=== PATIENT | male | born 1950 | race African-American/Black ===

== ENCOUNTER 2021-05-17 07:05 | Outpatient (REF) | payer BC, SELFPAY ==
--- NOTE | ~2021-05-17 | XR_ITS ---
EXAMINATION: KNEE X-RAY CLINICAL INFORMATION: Pain COMPARISON: None TECHNIQUE: Standing AP view of both knees and lateral sunrise view of the left knee FINDINGS: Left knee: Bone alignment is normal. No fracture or dislocation is seen. There is medial femoral tibial joint space narrowing. There is a small osteophyte at the patellofemoral joint. There is slight lateral subluxation of the patella on the sunrise view. There is large osteophyte at the quadriceps tendon insertion to the patella. There is a large joint effusion. Standing AP view of the right knee demonstrates medial femoral tibial joint space narrowing. XR/XR knee standing BI IMPRESSION: Left knee: Arthritis and large joint effusion.
--- NOTE | ~2021-05-17 | XR_ITS ---
EXAMINATION: KNEE X-RAY CLINICAL INFORMATION: Pain COMPARISON: None TECHNIQUE: Standing AP view of both knees and lateral sunrise view of the left knee FINDINGS: Left knee: Bone alignment is normal. No fracture or dislocation is seen. There is medial femoral tibial joint space narrowing. There is a small osteophyte at the patellofemoral joint. There is slight lateral subluxation of the patella on the sunrise view. There is large osteophyte at the quadriceps tendon insertion to the patella. There is a large joint effusion. Standing AP view of the right knee demonstrates medial femoral tibial joint space narrowing. XR/XR knee LT 2V IMPRESSION: Left knee: Arthritis and large joint effusion.
== END 2021-05-17 07:06 | disposition home or self-care (01) ==
LOC: HO.HOSX 07:05
PROVIDERS: Visit Provider Physician Assistant
DX: M17.12 Unilateral primary osteoarthritis, left knee (principal)
CPT/HCPCS: 20610; 73560; 73565; J1100

== ENCOUNTER 2024-04-22 10:16 | Outpatient (REF) | payer OTHER, SELFPAY | END 2024-04-22 10:17 | disposition home or self-care (01) | LOC: HO.HOSX 10:16 | PROVIDERS: Visit Provider Orthopaedic Surgery | DX: M25.561 Pain in right knee (principal); M17.0 Bilateral primary osteoarthritis of knee | CPT/HCPCS: 20610; 73560; 73562; J0665; J1100; J2003 ==

== ENCOUNTER 2024-04-22 11:33 | Outpatient (AMB) | payer OTHER, SELFPAY ==
--- NOTE | 2024-04-22 11:43 | A.OFFVIS_ITS ---
Intake Visit Reasons: New Prob - Pain of right knee Intake Note: Cruzito is a 73 year old male who presents today for a new problem visit with complaints of right knee pain. Patient reports that ohe has had ongoing knee pain intermittently for about 1 month now. The knee gets inflamed and stiff, he is frequently driving which seems to trigger this. When he is having increased swelling stairs become more challenging. He does utilize ice application, and OTC NSAID. Allergies citric acid [CITRIC ACID] Allergy (Severe, Unverified 04/05/20 18:14) ANGIOEDEMA wheat [WHEAT] Allergy (Severe, Unverified 04/05/20 18:14) ANGIOEDEMA blood pressure med Allergy (Unknown, Uncoded 11/13/11 00:00) HPI HPI New Prob - Pain of right knee: Details: Cruzito is a 73 year old male who presents today for a new problem visit with complaints of right knee pain. Patient reports that ohe has had ongoing knee pain intermittently for about 1 month now. The knee gets inflamed and stiff, he is frequently driving which seems to trigger this. When he is having increased swelling stairs become more challenging. He does utilize ice application, and OTC NSAID. [facility] Medical History High blood cholesterol High blood pressure Social History Current occupational status: employed Current occupation: rt handed /insurance sales Physical Exam Extrem Other: Medial compartment TTP bilaterally, Retropatellar ttp right knee with mild effusion. Office Procedures Joint Injection/Aspiration Joint Injection/Aspiration Details: Injected 1 mL of Decadron and 3 mL 1% lidocaine and 3 mL of 0.25% Marcaine. Site was prepped using aseptic technique. Patient tolerated the procedure well. Primary Site: right knee Approach Used: anterolateral Coding 19606 - Large joint Procedure code (CPT) selection complete Results Reviewed Results Reviewed: I personally reviewed relevant radiographs. Bilateral medial comaprtment knee OA, moderate on right ,mild on left Moderate PF OA Right Assessment & Plan Assessment & Plan (1) Arthritis of right knee: Code(s): M17.11 - Unilateral primary osteoarthritis, right knee Category: Medical Plan: He has right knee OA affecting PF compartment most severely. I injected his right knee (2) Osteoarthritis of left knee: Code(s): M17.12 - Unilateral primary osteoarthritis, left knee Category: Medical Plan: Left knee OA that is stable. No orthopaedic intervention waranted at this time. Orders: Orders XR knee RT 3V 04/22/24 M25.561 - Pain in right knee Coding Level of Care Code Est Pt Level 3 (16275) Complex EM visit Add On G2211 Diagnoses Arthritis of right knee M17.11 Osteoarthritis of left knee M17.12 CPT Codes Coding - 82824 Large joint: 38850 - Large joint ([id number])
== END 2024-04-22 12:25 | disposition home or self-care (01) ==
PROVIDERS: PCP Family Medicine; Visit Provider Orthopaedic Surgery
DX: M17.0 Bilateral primary osteoarthritis of knee (principal)
CPT/HCPCS: 20610; 99213

== ENCOUNTER 2025-07-03 10:13 | Outpatient (AMB) | payer OTHER, SELFPAY ==
--- NOTE | 2025-07-03 10:14 | MHC.OFFVIS ---
Vital Signs 07/03/25 10:15 Height 6 ft 1 in Weight 232 lb BMI 30.6 Intake Visit Reasons: New Prob - Left Trigger Finger Intake Note: Cruzito is a 74 year old right hand dominant male who presents today for a New Problem Visit with complaints of Left Ring Finger locking, catching, swelling and pain. Patient reports that he has had trigger finger of the Left Ring Finger for many years now but over the last few months the finger has become quite swollen.No previous treatment for the trigger finger. He did have a flare of gout in the hand a few months back but this was treated and he does not think that this is related. Allergies enalapril Allergy (Verified 07/03/25 10:18) Angioedema verapamil Allergy (Verified 07/03/25 10:18) Angioedema HPI HPI New Prob - Left Trigger Finger: Details: Cruzito is a 74 year old right hand dominant male who presents today for a New Problem Visit with complaints of Left Ring Finger locking, catching, swelling and pain. Patient reports that he has had trigger finger of the Left Ring Finger for many years now but over the last few months the finger has become quite swollen.No previous treatment for the trigger finger. He did have a flare of gout in the hand a few months back but this was treated and he does not think that this is related. HPI Comments Details: Interval History The patient is a 74-year-old male presenting with follow-up for left ring trigger finger and associated hand swelling. The patient reports that the swelling in his left hand has been present for a couple of weeks and has not improved. He notes that the swelling initially resolved after a previous gout flare about a month and a half ago, but has since returned. The patient has been icing the hand frequently, which provides some relief, but the swelling persists. The patient was recently diagnosed with atrial fibrillation and started on blood thinners five days ago. He reports no allergies to medications, but experiences angioedema with certain blood pressure medications. Results [facility] Medical History High blood cholesterol High blood pressure Social History (Reviewed 05/17/21 @ 09:37 by Simona Nela, [facility]) Current occupational status: employed Current occupation: rt handed /insurance sales Physical Exam Exam Exam: Physical Exam - Extremities: Swelling noted in the left hand, particularly around the ring finger. The area is warm to touch but not erythematous. Vital Signs: BMI result Body Mass Index 30.6 Assessment & Plan Assessment & Plan (1) Swelling of left hand: Code(s): M79.89 - Other specified soft tissue disorders Category: Medical Plan Plan 1. Left Ring Trigger Finger With Associated Swelling And Pain The plan is to manage the swelling with a compression glove and initiate occupational therapy to help reduce the swelling and improve function. Consideration of antibiotics for possible low-grade cellulitis due to the warmth and tenderness of the area. 2. Swelling Of The Left Hand, Possibly Related To Previous Gout Flare Continue monitoring the swelling and manage with icing and compression. Evaluate the need for further gout management if symptoms persist or worsen. 3. Atrial Fibrillation Continue current anticoagulation therapy as prescribed by the recreation facility attendant. Monitor for any signs of bleeding or complications related to anticoagulation. Discussion Notes The patient and clinician discussed the current swelling in the left hand, considering the possibility of a low-grade infection versus residual effects from a previous gout flare. The patient expressed willingness to try antibiotics if deemed necessary and agreed to the plan of using a compression glove and attending occupational therapy. The patient was informed about the importance of monitoring for signs of infection or worsening symptoms and to report any significant changes. Orders: Orders OT Evaluation and Treatment Today M79.89 - Other specified soft tissue disorders Medications: New cephalexin 500 mg PO QID 28 caps 0RF 7 days Coding Level of Care Code Est Pt Level 4 (35250) Diagnoses Swelling of left hand M79.89
[2025-07-03 10:15] VITALS: BMI 30.6
== END 2025-07-03 10:56 | disposition home or self-care (01) ==
PROVIDERS: PCP Family Medicine; Visit Provider Orthopaedic Surgery
DX: M79.89 Other specified soft tissue disorders (principal)
CPT/HCPCS: 99214

== ENCOUNTER 2025-07-18 13:42 | Outpatient (AMB) | payer OTHER, SELFPAY ==
--- OUTSIDE RECORDS SUMMARY | 2025-07-18 09:30 | XMS_ITS | Encounter Summary ---
Author Organization [facility] Address [address] [place] [address] Care Team Providers Care Engineer Second Assistant Name Role Phone Yaw Campbell MD Primary [...] (Lexiscan) nuclear stress test with myocardial perfusion MT MYOCARDIAL PERFUSION IMAGING TOMOGRAPHIC MULTI STUDIES AT REST OR STRESS MT MYOCARDIAL PERFUSION IMAGING TOMOGRAPHIC SINGLE STUDY AT REST OR STRESS MT CARDIOVASCULAR STRESS TEST GLOBAL MT CV TMST/BIKE MAX/SUBMAX CONTINUOUS ECG MON/PHARM STRESS SUPVSR ONLY MT CV STRESS TEST/BIKE CONT ECG MON/PHARM STRESS INTERP & REPORT ONLY MT TEST STRESS CARDIOVASCULAR TRACING ONLY Jolene Li MD [facility] [address] [place] [address] [facility] Referral ID Status Reason Start Date Expiration Date V isits Requested Visits Authorized [id number] Authorized 07/05/2025 08/19/2025 1 1 Encounter Details Date Type Department Care Team (Latest Contact Info) Description 07/18/2025 9:30 AM EST Ancillary Procedure [facility] - [address] [place] [address] Atrial fibrillation, unspecified type (CMS/HCC V24, CMS/HCC [...] documented in this encounter Plan of Treatment Pending Results Name Type Priority Associated Diagnoses Date /Time Regadenoson (Lexiscan) nuclear stress test with myocardial perfusion Cardiac Nuclear Medicine Routine Atrial fibrillation, unspecified type (CMS/HCC V24, CMS/HCC V28) Dilated cardiomyopathy (CMS/HCC V24, CMS/HCC V28) Systolic congestive heart failure, unspecified HF chronicity (CMS/HCC V24, CMS/HCC V28) 07/18/2025 12:10 PM EST documented as of this encounter Procedures Procedure Name Priority Date/Time Associated Diagnosis Comments NM LEXISCAN STRESS TEST W/ MYOCARDIAL PERFUSION Routine 07/18/2025 12:10 PM EST Atrial fibrillation, unspecified type (CMS/HCC V24, CMS/HCC V28) Dilated cardiomyopathy (CMS/HCC V24, CMS/HCC V28) Systolic congestive heart failure, unspecified HF chronicity (CMS/HCC V24, CMS/HCC V28) Procedure Note - Candi Edge NP / Andrea Lyles MD - 07/18/2025 12:10 PM ESTThis note is in progress. Stress ECG was non-diagnostic due to resting ST-T abnormalities. Vasodilator (regadenoson) stress test was performed . Patientreported no symptoms during the stress test. Hypotensive blood pressureresponse. Stress ejection fraction is 38%. Findings Stress Findings A pharmacological stress test was [...] for stress testing. The ECG shows atrial flutter. Non-specific ST abnormalities noted at baseline. There were no arrhythmias during stress. Arrhythmias during recovery: occasional premature ventricular contractions (PVCs). The result of the stress ECG was non-diagnostic for ischemia due to resting ST-T abnormalities. Nuclear Study Quality Study technique: MPI, SPECT, multi, rest and stress, 1 day. Overall image quality is excellent. CT attenuation correction was utilized. There are no artifacts present. There was no increased lung uptake of the radiopharmaceutical. No radiopharmaceutical dose was extravasated. The time from injection to rest imaging is 45 mins. The time from injection to stress imaging is 35 mins. Stress Function Comments Stress ejection fraction is 38%. Rest Function Comments Resting ejection fraction was 40%. documented in this encounter Visit Diagnoses Diagnosis [...] 1 documented in this encounter Care Teams Engineer Second Assistant Relationship Specialty Start Date End Date Yaw Campbell MD [address] [place] [phone] PCP - General Family Medicine 06/27/25 documented as of this encounter
[2025-07-18 13:48] VITALS: BMI 30.6
--- NOTE | 2025-07-18 13:48 | A.OFFVIS_ITS ---
Vital Signs 07/18/25 13:48 Height 6 ft 1 in Weight 232 lb BMI 30.6 Intake Visit Reasons: OV, L hand OA Intake Note: Cruzito is a 74 year old right hand dominant male who presents today for left hand osteoarthritis. He was last seen with Dr Landa with complaints of Left Ring Finger locking, catching, swelling and pain. Patient reports that he has had trigger finger of the Left Ring Finger for many years now but over the last few months the finger has become quite swollen. Patient was ordered O.T and advise to take ABX due to his gout flare up. Today patient states he discontinued his ABX due to being told by his PCP that this is not a gout flare up. He continues to have swelling and limited ROM. Allergies enalapril Allergy (Verified 07/18/25 13:59) Angioedema verapamil Allergy (Verified 07/18/25 13:59) Angioedema HPI HPI OV, L hand OA: Details: Cruzito is a 74 year old right hand dominant man who presents with complaints of left hand pain & swelling He complains of painful swelling & redness of multiple joints of his left hand & wrist, worse in his index & middle fingers. He says this has been present for ~3 weeks. He has pain with gripping activities, along with ROM of his finger & hand. he says he has pain that radiates up into his forearm at times. He finds some relief from ice & heat, but nothing termite exterminator helper. He had short term relief from his dose taper of Prednisone, and of Abx, but his symptoms quickly returned after a few days. He has a Hx of Gout in the past. He was seen by Dr. Landa who ordered OT & Cephalexin in case of a possible cellulitis. He says while on his Abx his swelling improved, but returned while he was still on hia Abx. [facility] Medical History High blood cholesterol High blood pressure Social History Current occupational status: employed Current occupation: rt handed /insurance sales Review of Systems Const All systems reviewed & are unremarkable except as noted in HPI and below Physical Exam Vital Signs: BMI result Body Mass Index 30.6 Const General: cooperative, healthy appearing and no acute distress Orientation/consciousness: patient oriented x3 HEENT Head: Yes normocephalic and Yes atraumatic Eyes EOM: EOMs intact bilaterally Resp Effort & Inspection: normal respiratory effort and able to speak in complete sentences Cardio Jugular venous distension: no JVD Skin General skin exam: turgor normal Rashes: no rashes Neuro General: patient oriented x3 Extrem Other: Evaluation of Left Upper Extremity: The patient is alert, oriented, and in no acute distress Neuro: Median, Ulnar, Radial nerves motor and sensory intact and sensation is normal to the tips of all digits Vascular: Cap refill brisk ROM: With encouragement he could [ ] Skin: No lacerations or abrasions. General: No Ecchymosis. No Erythema, warmth, or evidence of infection. Tender over the middle finger PIP joint Tender over the index finger MCP joint Tender over the wrist joint Swelling over the distal forearm, wrist, and hand Questionable pain with axial loading Radiographs: 3 views of the left hand were taken and viewed by me today in clinic. They show no fractures or dislocations. Psych Appearance: grossly normal Affect: normal affect Attitude: cooperative Office Procedures AMB Fracture Care Details: No fracture Left wrist joint diagnostic aspiration Mini C-arm for needle placement 53126 Left wrist steroid injection Mini C-arm for needle placement 88888 Fracture Billing Code: Fracture Billing Code Assessment & Plan Assessment & Plan (1) Swelling of left hand: Code(s): M79.89 - Other specified soft tissue disorders Category: Medical (2) Pain and swelling of left wrist: Code(s): M25.532 - Pain in left wrist; M25.432 - Effusion, left wrist Category: Medical (3) Numbness and tingling in left hand: Code(s): R20.0 - Anesthesia of skin; R20.2 - Paresthesia of skin Category: Medical Plan Assessment & Plan: 1. Left hand & wrist swelling & pain Distal forearm, wrist, hand Most tender over the wrist, 2nd MCP joint, and middle finger PIP joint Onset ~3-4 weeks ago, etiology unclear Possible Gout flare I educated him about this condition I discussed treatment options I recommend aspiration for evaluation by pathology He found limited relief from high-dose steroids & Keflex I discussed activity modification, he should work on ROM exercises at home Aspiration Injection#1: The risks and benefits of aspiration & injection, including but not limited to risk of damage to blood vessels, nerves, tendons, infection, failure to improve symptoms, increased pain, and possible need for further aspirations or surgical intervention. After obtaining written consent, I sterilely prepped the area over the Dorsal wrist joint. I then injected subcutaneously with a small amount 1% lidocaine. I then passed an 18 gauge needle into the dorsal wrist joint, at the scapholunate interval, using the mini C-arm for needle guidance, and aspirated ~0.4mL of clear watery fluid with a small amount of white precipitate in it. No gross purulence. Wrist steroid injection, injection 2: The joint was then injected with a combination of 1 mL of dexamethasone (4mg/ml) and 0.5% plain Marcaine, using the mini C-arm for needle guidance. The patient tolerated this well and with no complications. He had good early relief of his painful wrist symptoms following this injection. The fluid was sent to the lab for a Gram stain, cultures to assess for possible infection, as well as a crystals analysis to assess for possible Gout He is going to start his indomethacin 3 times a day as prescribed by his primary care provider He will follow up next week to see how he is doing. 2. Left hand numbness In the thumb & index fingers Symptoms intermittent & occasional If his symptoms increase in frequency or severity he can follow up for a NCS Please note that greater than 75 minutes was spent with this patient going over the history, evaluating the patient and radiographs, formulating possible treatment options, discussing them with the patient, and documenting the visit. Scribed for Devika Castillo MD by Bharat Lindsay, medical billing and coding instructor, on 07/18/25 at 2:00 PM, EST. Orders: Orders XR hand LT min 3V Today M79.642 - Pain in left hand FL guided needle placement Today M25.432 - Effusion, left wrist, M25.532 - Pain in left wrist, M79.89 - Other specified soft tissue disorders Routine Culture w Gram Stain Today M25.432 - Effusion, left wrist, M25.532 - Pain in left wrist, M79.89 - Other specified soft tissue disorders Coding Level of Care Code Est Pt Level 5 (20441) Diagnoses Swelling of left hand M79.89 Pain and swelling of left wrist M25.532; M25.432 Numbness and tingling in left hand R20.0; R20.2 CPT Codes Fracture Care - Fracture Billing Code: Fracture Billing Code ([id number])
--- OUTSIDE RECORDS SUMMARY | 2025-07-18 17:33 | XMS_ITS | Encounter Summary ---
Author Organization [facility] Address [address] [facility] [address] [place] [phone] Phone Care Team Providers Care Wildlife Removal Specialist Name Role Phone Radu Campbell MD Primary Care Prov ider Encounter Details Date Type Department Care Team (Late st Contact Info) Description 09/12/2019 Procedure Pass [facility] Endoscopy Admitting Dept Virtual Department [address] [place] [address] Social History Tobacco Use Types Packs/Day Years Used Date Smoking Tobacco: Never Smokeless Tobacco: Never Alcohol Use Standard Drinks/Week Comments Yes 10 (1 standard drink = 0.6 oz pu re alcohol) Sex and Gender Information Value Date Recorded Sex Assigned at Not on file Legal Sex Male 9:59 PM EDT Gender Identity Not on file Sexual Orientation Not on file documented as of this encounter Plan of Treatment Not on file documented as of this encounter Visit Diagnoses Not on filedocumented in this encounter Care Teams Wildlife Removal Specialist Relationship Specialty Start Date End Date Radu Campbell MD PCP - General 05/04/17 documented as of this encounter Additional Source Comments The information contained in this document represents components of the legal health record. It is not the complete legal health record.[facility]
--- OUTSIDE RECORDS SUMMARY | 2025-07-18 17:33 | XMS_ITS | Encounter Summary ---
Author Organization [facility] Address [address] [place] [phone] Phone Care Team Providers Care Lacquer Mixer Name Role Phone Radu Campbell MD Primary Care Prov ider Encounter Details Date Type Department Care Team ([facility] st Contact Info) Description 06/28/2025 Telephone [facility] [address] [place] [address] Eitan Vasquez MD [address] [address] [email or web address] Social History Tobacco Use Types Packs/Day Years Used Date Smoking Tobacco: Never Smokeless Tobacco: Never Alcohol Use Standard Drinks/Week Comments Yes 10 (1 standard drink = 0.6 oz pu re alcohol) Education Answer Date Recorded Are you interested in more education? Not on kiah e 11/14/2022 Are you concerned about learning? Not on file 11/14/2022 No 11/14/2022 No 11/14/2022 Digital Access Answer Date Recorded No 12/13/2022 No 12/13/2022 No 12/13/2022 Reliable internet access at home? Not on file 12/13/2022 Device with a working camera? Not on file Sex and Gender Information Value Date Recorded Sex Assigned at Not on file Legal Sex Male 9:59 PM EDT Gender Identity Not on file Sexual Orientation Not on file documented as of this encounter Progress Notes * Charmaine Winston - 06/28/2025 1:08 PM EST Pt calling to schedule 5 year colonoscopy, please reach out when available. Patient was due in 08/2024 documented in this encounter Plan of Treatment Not on file documented as of this encounter Visit Diagnoses Not on filedocumented in this encounter Care Teams Lacquer Mixer Relationship Specialty Start Date End Date Radu Campbell MD [email or web address] PCP - General 05/04/17 documented as of this encounter Additional Source Comments The information contained in this document represents components of the legal health record. It is not the complete legal health record.[facility]
--- OUTSIDE RECORDS SUMMARY | 2025-07-18 17:33 | XMS_ITS | Clinical Summary ---
Author Organization [facility] Address [address] [place] [address] Phone Care Team Providers Care Corrosion Control Engineer Name Role Phone Radu Campbell MD Primary Care Prov ider Allergies Active Allergy Reactions Criticality Noted Date Comments Enalapril Maleate Angioedema 05/30/2018 triggered angioedema Verapamil Other (See Comments) 05/30/2018 slowed heart rate to 30's Medications amLODIPine (NORVASC) 10 MG tablet Take 10 mg by mouth daily. Active doxazosin (CARDURA) 4 MG tablet Take 4 mg by mouth nightly at bedtime. Active pravastatin (PRAVACHOL) 20 MG tablet Take 20 mg by mouth daily. Active irbesartan (AVAPRO) 300 MG tablet Take 300 mg by mouth daily. Active hydrOXYzine HCl (ATARAX) 10 MG tablet Take 10 mg by mouth 3 (three) times a day as needed for itching. Active aspirin 81 MG EC tablet Take 81 mg by mouth daily. Active Encounters Date Type Department Care Team Description 06/28/[address] [facility] [address] [place] [address] Elyssa Mcknight MD 06/26/2025 Transcribe Orders [facility] [address], [address] [place] [address] Rdau Campbell MD Atrial fibrillation, unspecified type (Primary Dx) 06/26/2025 Transcribe Orders [facility] [address], [address] [place] [address] Radu Campbell MD Atrial fibrillation, unspecified type (Primary Dx) from Last 3 Months Social History Tobacco Use Types Packs/Day Years [...] on file Sexual Orientation Not on file Last Filed Vital Signs Vital Sign Reading Time Taken Comments Blood Pressure 121/91 09/12/2019 7:57 AM EST Pulse 63 09/12/2019 6:57 AM EST Temperature 37 C (98.6 F) 05/30/2018 2:32 PM EST Respiratory Rate 18 09/12/2019 7:57 AM EST Oxygen Saturation 92% 09/12/2019 7:57 AM EST Inhaled Oxygen Concentration - - Weight 108 kg (238 lb) 08/26/2019 9:00 AM EST Height 185.4 cm (6' 1 ) 09/12/2019 6:57 AM EST Body Mass Index 31.4 08/26/2019 9:00 AM EST Plan of Treatment Health Maintenance Due Date Last Done Comments LIPID PANEL 1950 DEPRESSION SCREENING 1964 HEPATITIS C SCREENING 1970 COLOGUARD 1997 FIT TEST 1997 FOBT 1997 SIGMOIDOSCOPY 1997 VIRTUAL COLONOSCOPY 1997 ZOSTER VACCINES (1 of 2) 2002 CREATININE LEVEL 05/30/2019 05/30/2018 POTASSIUM LEVEL 05/30/2019 05/30/2018 PNEUMOCOCCAL VACCINES (50+ years) (2 of 2 - PCV) 02/26/2021 02/27/2020 Adult Td,Tdap Booster 05/07/2022 05/07/2012 INFLUENZA VACCINE (#1) 2025 0, 04/27/2019, 05/07/2012, Additional history exists COVID-19 VACCINE ( - 2024- season) 2025 09/28/2020 RSV VACCINE (1 - 1-dose 75+ series) 2027 COLONOSCOPY 09/12/2029 09/12/2019 COLORECTAL CANCER SCREENING 09/12/2029 SMOKING STATUS SCREENING (Once After 26 Yrs) Completed 09/12/2019 HEPATITIS A VACCINES Aged Out No long er eligible based on patient's age to complete this topic HIB VACCINES Aged Out No longer eligi ble based on patient's age to complete this topic MENINGOCOCCAL VACCINES (ACWY) Aged Out No longer eligible based on patient's age to complete this topic MENINGOCOCCAL VACCINES (B) Aged Out N o longer eligible based on patient's age to complete this topic Medical Devices Not on file Procedures Procedure Name Priority Date/Time Associated Diagnosis Comments ENDOSCOPY, COLON 09/12/2019 7:21 AM EST BASIC METABOLIC PANEL (BMP) STAT 05/30/2018 12:40 PM EST from Last 3 Months or Most Recently Relevant to Health Maintenance Results * ENDOSCOPY, COLON (09/12/2019 7:21 AM EST) Narrative Transcriptions Elyssa Mcknight MD - 09/12/2019 7:21 AM EST Patient Name: Cruzito Kerri Sanchez MD:: ELYSSA MCKNIGHT MD Procedure Date: 09/12/2019 7:21 AM Date of : 1950 Age: 69 Admit Type: Outpatient Gender: Male Room: [facility] 05 Referring MD: Radu Zamarripa MD Exam Type: Colonoscopy Indications: Screening for colorectal malignant neoplasm, Last colonoscopy: 2007, Last colonoscopy 10 years ago Medications: Monitored Anesthesia Care Procedure: Informed consent was obtained from the patient after discussion of the indications, limitations,alternatives, benefits, and risks of the procedure. Risksspecifically discussed include but are not limited to medication reactions, missed lesions, bleeding, perforation, orthe need for emergent surgery. Throughout the procedure, the patient's blood pressure, pulse, end-tidal CO2, and oxygen saturations were monitored continuously. The Olympus adult variable colonoscope CF-LR406O #4 was introduced through the anus and advanced to the cecum, identified by the appendiceal orifice, ileocecal valveand palpation. The colonoscopy was performed without difficulty. The patient tolerated the procedure well.The quality of the bowel preparation was evaluated usingthe BBPS (Mayo Bowel Preparation Scale) with scores of: Right Colon = 3, Transverse Colon = 3 and Left Colon =3 (entire mucosa seen well with no residual staining,small fragments of stool or opaque liquid). The total BBPSscore equals 9. Complications: No immediate complications. Estimated blood loss:Minimal. Findings: The perianal and digital rectal examinations werenormal. Pertinent negatives include normal sphincter tone. Two sessile polyps were found in the cecum. The polyps were 4 to 8 mm in size. These polyps were removed witha cold snare. Resection and retrieval were complete. Estimated blood loss was minimal. A 5 mm polyp was found in the mid ascending colon. The polyp was sessile. The polyp was removed with a cold snare. Resection and retrieval were complete. Estimated blood loss was minimal. A 4 mm polyp was found at 60 cm proximal to the anus.The polyp was sessile. The polyp was removed with a cold snare. Resection and retrieval were complete. Estimated blood loss was minimal. A few small-mouthed diverticula were found in the transverse colon. Non-bleeding internal hemorrhoids were found during retroflexion. The hemorrhoids were small. Retroflexion in the right colon was performed. The exam was otherwise without abnormality on directand retroflexion views. Impression: - Two 4 to 8 mm polyps in the cecum, removed with acold snare. Resected and retrieved. - One 5 mm polyp in the mid ascending colon, removedwith a cold snare. Resected and retrieved. - One 4 mm polyp at 60 cm proximal to the anus, removed with a cold snare. Resected and retrieved. - Diverticulosis in the transverse colon. - Non-bleeding internal hemorrhoids. - The examination was otherwise normal on direct and retroflexion views. Recommendation: - I will send results of your biopsy to you and your referring physician or provider. If you do not receive notification within 3 weeks, please call our office. - Repeat colonoscopy in 3 years for surveillance of multiple polyps. ELYSSA MCKNIGHT MD 09/12/2019 7:49:51 AM This report has been signed electronically. Number of Addenda: 0 Note Initiated On: 09/12/2019 7:21 AM Procedure Code(s): --- Professional --- 06520, Colonoscopy, flexible; with removal of tumor(s), polyp(s), or other lesion(s) by snare technique --- Technical --- 86285, Colonoscopy, flexible; with removal of tumor(s), polyp(s), or other lesion(s) by snare technique Diagnosis Code(s): --- Professional --- Z12.11, Encounter for screening for malignant neoplasm of colon D12.0, Benign neoplasm of cecum D12.2, Benign neoplasm of ascending colon K64.8, Other hemorrhoids K57.30, Diverticulosis of large intestine without perforation orabscess without bleeding --- Technical --- Z12.11, Encounter for screening for malignant neoplasm of colon D12.0, Benign neoplasm of cecum D12.2, Benign neoplasm of ascending colon K64.8, Other hemorrhoids K57.30, Diverticulosis of large intestine without perforation orabscess without bleeding CPT copyright 2018 [employer]. All rights reserved. The codes documented in this report are preliminary and upon hammer heater reviewmay be revised to meet current compliance requirements. Procedure Date: 09/12/2019 7:21:14 AM [address] [place] [address] Radu Zamarripa MD GI PROCEDURE ORDER DUARTE Final Result * (ABNORMAL) Basic metabolic panel (05/30/2018 12:40 PM EST) SODIUM 141 133 - 146 mmol/L [facility] CHLORIDE 103 96 - 108 mmol/L [facility] POTASSIUM 4.3 3.3 - 5.1 mmol/L [facility] CO2 24 21 - 35 mmol/L [facility] BUN 17 6 - 19 mg/dL [facility] CREATININE 1.00 0.5 - 1.5 mg/dL [facility] GLUCOSE 118(H) 70 - 99 mg/dL [facility] CALCIUM 9.2 8.4 - 10.3 mg/dL [facility] EGFR 79 >59 mL/min/1.7 3m2 [facility] Comment:If patient is black, multiply result by 1.159. Estimated glomerular filtration rate calculated using the CKD-EPI equation. ANION GAP 18 10 - 20 mmol/L [facility] Blood 05/30/2018 12:4 0 PM EST 05/30/2018 12:54 PM EST Daniela Fuller MD LAB BLOOD BKR ORDERA BLES Final Result [facility] [address] [place] [address] from Last 3 Months or Most Recently Relevant to Health Maintenance Insurance [place] [facility] [place] [address] [place] [address] [place] Advance Directives For more information, please contact: [phone] (9AM - 5PM [facility], Thursday-Thursday) Documents on File Type Date Recorded Patient Cosmetics Supervisor Expl anation Healthcare Proxy 09/12/2019 healthcare proxy Care Teams Corrosion Control Engineer Relationship Specialty Start Date End Date Radu Campbell MD [email or web address] PCP - General 05/04/17 Additional Source Comments The information contained in this document represents components of the legal health record. It is not the complete legal health record.[facility]
--- OUTSIDE RECORDS SUMMARY | 2025-07-18 17:33 | XMS_ITS | Clinical Summary ---
Author Organization [facility] [employer] [facility] Address [address] [place] [address] Phone Care Team Providers Care Lead Assembler Name Role Phone Yaw Campbell MD Primary Care Provi raudel Allergies Active Allergy Reactions Criticality Noted Date Comments Enalapril Maleate Angioedema High 05/30/2018 triggered angioedema Verapamil Other 05/30/2018 slowed heart rate to 30's Medications allopurinoL (ZYLOPRIM) 100 mg tablet Take 1 tablet (100 mg total) by mouth 1 (one) time each day. for 30 days 05/16/2025 Active amLODIPine (NORVASC) 10 mg tablet Take 1 tablet (10 mg total) by mouth 1 (one) time each day. 12/12/2023 Active doxazosin (CARDURA) 4 mg tablet Take 1 tablet (4 mg total) by mouth 1 (one) time each day. 12/19/2023 Active hydrOXYzine HCL (ATARAX) 10 mg tablet Take 1 tablet (10 mg total) by mouth every 6 (six) hours if needed. Active irbesartan (AVAPRO) 300 mg tablet Take 1 tablet (300 mg total) by mouth 1 (one) time each day. Active pravastatin (PRAVACHOL) 40 mg tablet Take 1 tablet (40 mg total) by mouth 1 (one) time each day. Active Xarelto 20 mg tablet Take 1 tablet (20 mg total) by mouth 1 (one) time each day with dinner. 06/22/2025 Active Hospital, Clinic, or Other Facility Administered Medication Ordered Dose Route Frequency Start Date End Date Status regadenoson (LEXISCAN) injection 0.4 mgIndications:Atrial fibrillation, unspecified type (CMS/HCC V24, CMS/HCC V28),Dilated cardiomyopathy (CMS/HCC V24, CMS/HCC V28),Systolic congestive heart failure, unspecified HF chronicity (CMS/HCC V24, CMS/HCC V28) 0.4 mg IV Once in imaging 07/18/2025 Active TC-99M tetrofosmin P radio-isotope injection 10.1 millicurie 10.1 millicurie IV Once in imaging 07/18/2025 07/18/2025 Ende d regadenoson (LEXISCAN) injection 0.4 mg 0.4 mg IV Once in imaging 07/18/2025 07/18/2025 Ended TC-99M tetrofosmin P radio-isotope injection 29.9 millicurie 29.9 millicurie IV Once in imaging 07/18/2025 07/18/2025 Ende d Encounters Date Type Department Care Team Description 07/18/2025 9:30 AM EST Ancillary Procedure [facility] Cardiology [facility] [address] [place] [phone] Atrial fibrillation, unspecified type (CMS/HCC V24, CMS/HCC V28); Dilated cardiomyopathy (CMS/HCC V24, CMS/HCC V28); Systolic congestive heart failure, unspecified HF chronicity (CMS/HCC V24, CMS/HCC V28) 06/28/2025 11:10 AM EST Office Visit [facility] Cardiology [facility] [address] [place] [phone] Jolene Vitale MD Atrial fibrillation, unspecified type (CMS/HCC V24, CMS/HCC V28) (Primary Dx); Dilated cardiomyopathy (CMS/HCC V24, CMS/HCC V28); Systolic congestive heart failure, unspecified HF chronicity (CMS/HCC V24, CMS/HCC V28) 06/27/2025 Telephone [facility] [address] [place] [address] Yaw Campbell MD from Last 3 Months Family History Medical History Relation Name Comments COPD Father Relation Name Status Comments Father Social History Tobacco Use Types Packs/Day Years Used Date Smoking Tobacco: Never Passive Smoke Exposure: Past Smokeless Tobacco: Never Tobacco Cessation:Counseling Given: Not Answered Alcohol Use Standard Drinks/Week Comments Not Currently [...] Pressure 89/61 07/18/2025 9:54 AM EST Pulse 104 06/28/2025 11:18 AM EST Temperature - - Respiratory Rate - - Oxygen Saturation 17% 06/28/2025 11:18 AM EST Inhaled Oxygen Concentration - - Weight 105 kg (231 lb) 07/18/2025 9:32 AM EST Height 185.4 cm (6' 1 ) 07/18/2025 9:32 AM EST Body Mass Index 30.48 07/18/2025 9:32 AM EST Plan of Treatment Health Maintenance Due Date Last Done Comments Colorectal Cancer Screening: Colonoscopy 1950 RSV Immunization Adult Patients (1 - Risk 50-74 years 1-dose series) 2002 Zoster Vaccines (1 of 2) 2002 Depression Screening 07/20/2024 COVID-19 Vaccine ( season) 2025 05/22/2022, 06/28/2021, 10/19/2020, Additional history exists Cholesterol Screening (Lipid Panel) 06/27/2025 Falls Risk Assessment 06/27/2025 Hepatitis C Screening 06/27/2025 Social Influencers of Health Screening 06/27/2025 Hypertension/CHF/CAD Annual BMP Blood Test 06/28/2025 DTaP,Tdap,and Td Vaccines (3 - Td or Tdap) 02/26/2032 02/25/2022, 05/07/2012 Pneumococcal Vaccine: 50+ Years Completed 02/27/2020, 05/21/2018 Influenza Vaccine Completed 03/30/2025, , 04/27/2023, Additional history exists HIB Vaccines Aged Out No longer eligi ble based on patient's age to complete this topic HPV Vaccines Aged Out No longer eligi ble based on patient's age to complete this topic Hepatitis A Vaccines Aged Out No long er eligible based on patient's age to complete this topic Hepatitis B Vaccines Aged Out No long er eligible based on patient's age to complete this topic IPV Vaccines Aged Out No longer eligi ble based on patient's age to complete this topic MMR Vaccines Aged Out No longer eligi ble based on patient's age to complete this topic Meningococcal ACWY Vaccine Aged Out N o longer eligible based on patient's age to complete this topic Meningococcal B Vaccine Aged Out No l onger eligible based on patient's age to complete this topic RSV Immunization Patients Under 20 months Aged Out No longer eligible based on patient's age to complete this topic Varicella Vaccines Aged Out No longer eligible based on patient's age to complete this topic Procedures Procedure Name Priority Date/Time Associated Diagnosis [...] Function Comments Resting ejection fraction was 40%. ECG 12-LEAD Routine 06/28/2025 11:27 AM EST Atrial fibrillation, unspecified type (CMS/HCC V24, CMS/HCC V28) from Last 3 Months Results * ECG 12 lead (06/28/2025 11:27 AM EST) Ventricular Rate ECG 91 BPM GEMUSE Atrial Rate 202 BPM GEMUSE QRS Duration 98 ms GEMUSE Q-T Interval 392 ms GEMUSE QTc 482 ms GEMUSE R [place] 10 degrees GEMUSE T [place] -136 degrees GEMUSE ECG Interpretation Atrial fibrillation with premature ventricular or aberrantly conducted complexes Low voltage QRS Cannot rule out Anterior infarct , age undetermined No previous ECGs available Confirmed by RUBEN VITALE ([id number]) on 07/16/2025 11:22:57 PM GEMUSE 06/28/2025 11:2 7 AM EST 07/16/2025 11:22 PM EST us Jolene Vitale MD ECG ORDERABLES Final Resu lt GEMUSE from Last 3 Months Insurance MEDICARE [facility] [place] [id number] Care Teams Lead Assembler Relationship Specialty Start Date End Date Yaw Campbell MD [address] [place] [address] PCP - General Family Medicine 06/27/25
== END 2025-07-18 15:29 | disposition home or self-care (01) ==
LOC: HO.HOS 13:43
PROVIDERS: PCP Family Medicine; Visit Provider Orthopaedic Surgery
DX: M79.89 Other specified soft tissue disorders (principal); M25.532 Pain in left wrist; M25.432 Effusion, left wrist; R20.0 Anesthesia of skin; R20.2 Paresthesia of skin
CPT/HCPCS: 20605; 77002; 99215; 99417

== ENCOUNTER 2025-07-18 13:42 | Outpatient (REF) | payer OTHER, SELFPAY ==
--- NOTE | ~2025-07-18 | FL_ITS ---
EXAMINATION: FL GUIDANCE ONLY FOR NEEDLE PLACEMENT HISTORY: M25.532 - Pain in left wrist COMPARISON: Left wrist x-ray from the same day Technique: Intraoperative fluoroscopic guidance provided for orthopedic procedure. FINDINGS: Single submitted fluoroscopic image demonstrates needle projecting over the proximal carpal row/scapholunate joint. See procedure note for detailed findings. Fluoroscopy time 23 seconds. Dose 9734 ugy/sq cm FL/FL guided needle placement IMPRESSION: Fluoroscopy guidance for orthopedic procedure. Electronically signed by: Iris Bernstein MD 07/19/2025 09:50 AM GILDA
== END 2025-07-18 13:43 | disposition home or self-care (01) ==
LOC: HO.HOSX 13:42
PROVIDERS: PCP Family Medicine; Visit Provider Orthopaedic Surgery
DX: M79.642 Pain in left hand (principal); M25.532 Pain in left wrist; M25.432 Effusion, left wrist; M79.89 Other specified soft tissue disorders; R20.0 Anesthesia of skin; R20.2 Paresthesia of skin
CPT/HCPCS: 20605; 77002; 87070; 87073; 87205; J0665; J1100; J2003

== ENCOUNTER → 2025-07-18 13:45 | Outpatient (BNV) | payer OTHER, SELFPAY | PROVIDERS: Visit Provider Radiology Diagnostic Radiology | DX: M24.232 Disorder of ligament, left wrist (principal) | CPT/HCPCS: 73130 ==

== ENCOUNTER 2025-07-19 09:05 | Outpatient (REF) | payer OTHER, SELFPAY ==
--- OUTSIDE RECORDS SUMMARY | 2025-07-18 09:30 | XMS_ITS | Encounter Summary ---
Author Organization [facility] Address [address] [place] [address] Care Team Providers Care Charge Loader Name Role Phone Yaw Campbell MD Primary Care Provi raudel Reason for Visit * Cardiac Stress Testing (Routine) - Authorized Specialty Diagnoses / Procedures Referred By Contac t Referred To Contact Cardiology Diagnoses Atrial fibrillation, unspecified type (CMS/HCC V24, CMS/HCC V28) Dilated cardiomyopathy (CMS/HCC V24, CMS/HCC V28) Systolic congestive heart failure, unspecified HF chronicity (CMS/HCC V24, CMS/HCC V28) Procedures Regadenoson (Lexiscan) nuclear stress test with myocardial perfusion DC MYOCARDIAL PERFUSION IMAGING TOMOGRAPHIC MULTI STUDIES AT REST OR STRESS DC MYOCARDIAL PERFUSION IMAGING TOMOGRAPHIC SINGLE STUDY AT REST OR STRESS DC CARDIOVASCULAR STRESS TEST GLOBAL DC CV TMST/BIKE MAX/SUBMAX CONTINUOUS ECG MON/PHARM STRESS SUPVSR ONLY DC CV STRESS TEST/BIKE CONT ECG MON/PHARM STRESS INTERP & REPORT ONLY DC TEST STRESS CARDIOVASCULAR TRACING ONLY Jolene Li MD [facility] [address] [place] [address] [facility] Referral ID Status Reason Start Date Expiration Date V isits Requested Visits Authorized [id number] Authorized 07/05/2025 08/19/2025 1 1 Encounter Details Date Type Department Care Team (Latest Contact Info) Description 07/18/2025 9:30 AM EST Ancillary Procedure [facility] - [address] [place] [phone] Atrial fibrillation, unspecified type (CMS/HCC V24, CMS/HCC V28); Dilated cardiomyopathy (CMS/HCC V24, CMS/HCC V28); Systolic congestive heart failure, unspecified HF chronicity (CMS/HCC V24, CMS/HCC V28) Social History Tobacco Use Types Packs/Day Years Used Date Smoking Tobacco: Never Passive Smoke Exposure: Past Smokeless Tobacco: Never Alcohol Use Standard Drinks/Week Comments Not Currently 6 (1 standard drink = 0.6 oz pur e alcohol) Sex and Gender Information Value Date Recorded Sex Assigned at Not on file Legal Sex Male 8:06 AM EST Gender Identity Not on file Sexual Orientation Not on file documented as of this encounter Last Filed Vital Signs Vital Sign Reading Time Taken Comments Blood Pressure 89/61 07/18/2025 9:54 AM EST Pulse - - Temperature - - Respiratory Rate - - Oxygen Saturation - - Inhaled Oxygen Concentration - - Weight 105 kg (231 lb) 07/18/2025 9:32 AM EST Height 185.4 cm (6' 1 ) 07/18/2025 9:32 AM EST Body Mass Index 30.48 07/18/2025 9:32 AM EST documented in this encounter Plan of Treatment Upcoming Encounters Date Type Department Care Team (Late st Contact Info) Description 08/30/2025 1:40 PM EST Office Visit [facility] [address] [facility] [address] [place] [phone] Veronica Draper NP [address] [place] [address] [address] [place] [phone] documented as of this encounter Procedures Procedure Name Priority Date/Time Associated Diagnosis Comments NM LEXISCAN STRESS TEST W/ MYOCARDIAL PERFUSION Routine 07/18/2025 12:10 PM EST Atrial fibrillation, unspecified type (CMS/HCC V24, CMS/HCC V28) Dilated cardiomyopathy (CMS/HCC V24, CMS/HCC V28) Systolic congestive heart failure, unspecified HF chronicity (CMS/HCC V24, CMS/HCC V28) documented in this encounter Results * NM LEXISCAN STRESS TEST W/ MYOCARDIAL PERFUSION (07/18/2025 12:10 PM EST) Exercise/injec tion duration (min) 0 CV PACS STRESS Exercise/injec tion duration (sec) 54 CV PACS STRESS Peak SBP 90 mmHg CV PACS STRESS Peak DBP 60 mmHg CV PACS STRESS Peak HR 131 bpm CV PACS STRESS Baseline HR 88 bpm CV PACS STRESS Baseline SBP 100 mmHg CV PACS STRESS Baseline DBP 70 mmHg CV PACS STRESS Estimated workload 1.0 METS CV PACS STRESS Percent HR 89 % CV PACS STRESS Rate Pressure Product 11,790.0 mmHg*bpm CV PACS STRESS Target HR 126 bpm CV PACS STRESS Max HR Percent 88 % CV PA CS STRESS TID 1.17 CV PACS STRESS Nuc Stress EF 38 % CV PAC S STRESS Nuc Rest EF 40 % CV PACS STRESS BSA 2.32 m2 CV PACS STRESS Anatomical Region Laterality Modality Nuclear Medicine 07/18/2025 10:4 8 AM EST 07/18/2025 11:16 AM EST Impressions 07/19/2025 2:44 PM EST 1. Abnormal pharmacological nuclear stress test. 2. Symptoms: No chest pain during the regadenoson infusion 3. Stress ECG: No ischemic ECG changes with the regadenoson infusion, in the setting of an abnormal baseline 4. Myocardial perfusion imaging: - Attenuation corrected myocardial perfusion imaging revealed evidence of a small in size and mild in intensity fixed perfusion defect in the apical inferior wall and apex, suggestive of an infarct. - No evidence of any reversible perfusion defects on the attenuation corrected myocardial perfusion images to suggest the presence of ischemia. 5. TID was normal at 1.17. 6. Gated SPECT imaging was performed which demonstrated Global hypokinesis. The left ventricular systolic function is mildly reduced at rest with a left ventricular ejection fraction of 40%. Narrative 07/19/2025 2:44 PM EST Stress Findings A pharmacological stress test was performed using regadenoson, 0.4 mg IV over 10-15 seconds, followed by radiopharmacological injection 10 seconds post infusion. Total stress time was 0 min and 54 sec. The patient reached the end of the protocol. The patient's hemodynamic response was adequate for diagnosis. Blood pressure demonstrated a hypotensive response. Heart rate demonstrated a normal response. The patient reported no symptoms during the stress test. ECG 74-year-old with a history of atrial fibrillation who presents today for stress testing. The ECG shows atrial fibrillation and a nonspecific ST segment/T wave abnormality. There were no arrhythmias during stress. No significant ischemic changes in the setting of an abnormal baseline. Arrhythmias during recovery: occasional premature ventricular contractions (PVCs). No ischemic ECG changes in the setting of an abnormal baseline. Nuclear Study Quality Study technique: MPI, SPECT, multi, rest and stress, 1 day. Overall image quality is excellent. CT attenuation correction was utilized. There are no artifacts present. There was no increased lung uptake of the radiopharmaceutical. No radiopharmaceutical dose was extravasated. The time from injection to rest imaging is 45 mins. The time from injection to stress imaging is 35 mins. Perfusion Defect Conclusion There is no evidence of transient ischemic dilation (TID). Stress Function Comments Left ventricular systolic function post-stress is abnormal. Global function is moderately reduced. Stress ejection fraction is 38%. Rest Function Comments Left ventricular function at rest was abnormal. Resting ejection fraction was 40%. Global function is mildly reduced. Stress Combined Conclusion SCAN FINDINGS: Nuclear imaging of the left ventricle reveals normal cavity size at rest with no change with stress imaging. Myocardial perfusion imaging of the left ventricle revealed a large in size and severe intensity mostly fixed perfusion defect involving the basal to apical inferior wall, basal to mid inferoseptal wall, apical lateral wall, apical anterior wall, and apex. The raw images demonstrated the presence of significant diaphragmatic and soft tissue attenuation. CT attenuation correction was applied to the study which partially corrects the previously mentioned perfusion abnormality. As such, at least some portion of the previously mentioned perfusion defects are likely secondary to diaphragmatic/soft tissue attenuation artifact. However, even after attenuation correction was applied, there is evidence of a small in size and mild in intensity fixed perfusion defect in the apical inferior wall and apex. No reversible perfusion defects are noted on the attenuation corrected myocardial perfusion images. Gated SPECT imaging was performed which demonstrated Global hypokinesis. The left ventricular systolic function is mildly reduced at rest with a left ventricular ejection fraction of 40%. Perfusion Scoring Resting Summed Score: 2 Percent Normal: 2.94% Mild count reduction in the following segments: apical inferior and apex. All other segments are normal. AC resting images Perfusion Scoring Stress Summed Score: 2 Percent Normal: 2.94% Mild count reduction in the following segments: apical inferior and apex. All other segments are normal. AC stress images Perfusion Scores: SRS Score: 2 Percentage Abnormal: 2.94% Perfusion Scores: SSS Score: 2 Percentage Abnormal: 2.94% Perfusion Scores: SDS Score: 0 Percentage Abnormal: 0.00% Jolene Li MD CV STRESS PROCEDURES Final Result documented in this encounter Visit Diagnoses Diagnosis Atrial fibrillation, unspecified type (CMS/HCC V24, CMS/HCC V28) Dilated cardiomyopathy (CMS/HCC V24, CMS/HCC V28) Other primary cardiomyopathies Systolic congestive heart failure, unspecified HF chronicity (CMS/HCC V24, CMS/HCC V28) documented in this encounter Administered Medications Inactive Administered Medications - up to 3 most recent administrations Medication Order MAR Action Action Date Dose Rate Site regadenoson (LEXISCAN) injection 0.4 mg 0.4 mg, intravenous, Once in imaging, Starting on Thu07/18/25 at 1054, For 1 dose Given 07/18/2025 11:15 AM EST 0.4 mg Right Antecubital TC-99M tetrofosmin P radio-isotope injection 10.1 millicurie 10.1 millicurie, intravenous, Once in imaging, Starting on Thu07/18/25 at 0928, For 1 dose Given 07/18/2025 9:47 AM EST 10.1 millicuries Right Antecubital TC-99M tetrofosmin P radio-isotope injection 29.9 millicurie 29.9 millicurie, intravenous, Once in imaging, Starting on Thu07/18/25 at 1054, For 1 dose Given 07/18/2025 11:16 AM EST 29.9 millicuries Right Antecubital documented in this encounter Orders Medications Ordered That George ht Not Have Been Administered Count Last Ordered Date First Ordered Date regadenoson (LEXISCAN) injection 0.4 mg 1 1 documented in this encounter Care Teams Charge Loader Relationship Specialty Start Date End Date Yaw Campbell MD [address] [place] [phone] PCP - General Family Medicine 06/27/25 documented as of this encounter
--- NOTE | ~2025-07-19 | XR_ITS ---
EXAMINATION: XR HAND 3 OR MORE VIEWS LEFT HISTORY: M79.642 - Pain in left hand COMPARISON: There are no prior studies available for comparison. FINDINGS: Three views of the left hand are submitted. Osseous mineralization is normal. There is no fracture or dislocation. There is widening of the scapholunate space, suggestive of chronic ligamentous injury. There is no significant joint space narrowing. The soft tissues are unremarkable. XR/XR hand LT min 3V IMPRESSION: Widening of the scapholunate space, suggestive of chronically edematous injury. Electronically signed by: Victor Manuel Wilburn MD 07/18/2025 02:05 PM GILDA
--- OUTSIDE RECORDS SUMMARY | 2025-07-19 23:59 | XMS_ITS | Continuity of Care Document ---
Author Organization [facility] Address [address] [address]- Care Team Providers Care Scene And Lighting Design Lecturer Name Role Phone Stefano Salazar MD, Radu Primary Care Phys [facility] [place] [facility] [place]): 06/19/25 - 07/19/25 [id number] [address]- Attending Physician: Monet Lopez Admitting Physician: Monet Lopez Referring Physician: Monet Lopez Encounter Type: Triage Allergies, Adverse Reactions, Alerts Substance Criticality Severity Reaction Reaction Severity Status enalapril Active Immunizations Given and Recorded Vaccine Date Status Refusal Reason SARS-CoV-2 (COVID-19) mRNA BNT-162b2 vac 10/19/20 Given SARS-CoV-2 (COVID-19) mRNA BNT-162b2 vac 09/28/20 Given Medications amLODIPine 5 mg oral tablet 5 mg, 1, tablet, By Mouth, Daily, (do not take this if systolic blood pressure is below 100 ), # 30tablet, Refills 0, Tot. Refills 0, Maintenance, 05/08/17 2:21:41 PM EDT, Route to Pharmacy Electronically, [facility] Start Date: 05/08/17 Stop Date: 06/07/17 Status: Ordered Medication Dispense Status: Completed Quantity: 30.0 Unit: tablet Total Allowed Fills: 1 Fills Dispensed: 0 hydrochlorothiazide-valsartan 25 mg-320 mg oral tablet 1 tablet, By Mouth, Daily, # 30 tablet, 0 Refills, Maintenance, 05/08/17 1:23:48 PM EDT, Tablet Start Date: 05/08/17 Status: Ordered Medication Dispense Status: Completed Quantity: 30.0 Unit: tablet Total Allowed Fills: 1 Fills Dispensed: 0 hydrOXYzine hydrochloride 10 mg oral tablet 2 tablet = 20 mg, By Mouth, 4 times a day, PRN for anxiety, # 80 tablet, 0 Refills, Maintenance, 05/08/17 2:50:09 AM EDT, Tablet Start Date: 05/08/17 Status: Ordered Medication Dispense Status: Completed Quantity: 80.0 Unit: tablet Total Allowed Fills: 1 Fills Dispensed: 0 oxyCODONE 5 mg oral capsule 1 capsule = 5 mg, By Mouth, Every 6 hours, PRN as needed for pain, # 12 capsule, 0 Refills, Maintenance, 04/21/23 12:26:00 AM EDT, Capsule, [facility]/pharmacy #[id number], Partial fill upon patient request if theprescription is for a schedule II opioid drug., 186, cm, 04/20/23 14:54:00 EDT, Height, 107, kg, 04/20/23 14:54:00 EDT, Dry Weight Start Date: 04/21/23 Status: Ordered Medication Dispense Status: Completed Quantity: 12.0 Unit: capsule Total Allowed Fills: 1 Fills Dispensed: 0 oxyCODONE 5 mg oral tablet 5 mg, 1, tablet, By Mouth, Every 6 hours, PRN, # 12 tablet, Refills 0, Tot. Refills 0, Maintenance,for pain, 04/24/23 1:21:00 PM EDT, Route to Pharmacy Electronically, [facility]/pharmacy #[id number], Partial fill upon patient request if the prescription is for a schedule II opioid drug., 186, cm, 04/20/23 14:54:00 EDT, Height, 107, kg, 04/20/23 14:54:00 EDT, Dry Weight Start Date: 04/24/23 Status: Ordered Medication Dispense Status: Completed Quantity: 12.0 Unit: tablet Total Allowed Fills: 1 Fills Dispensed: 0 pravastatin 40 mg oral tablet 1 tablet = 40 mg, By Mouth, Daily, # 90 tablet, 0 Refills, Maintenance, 05/08/17 2:48:41 AM EDT, Tablet Start Date: 05/08/17 Status: Ordered Medication Dispense Status: Completed Quantity: 90.0 Unit: tablet Total Allowed Fills: 1 Fills Dispensed: 0 predniSONE 10 mg oral tablet See Instructions, 4 tablet By Mouth Daily for three days, then 3 tablet By Mouth Daily for three days, then 2 tablet By Mouth Daily for three days, then 1 tablet By Mouth Daily for three days., # 30 tablet, 0 Refills, Maintenance, 04/21/23 12:18:00 AM EDT, Tablet, [facility]/pharmacy #[id number], Partial fill upon patient request if the prescription is for a schedule II opioid drug., 186, cm, 04/20/23 14:54:00EDT, Height, 107, kg, 04/20/23 14:54:00 EDT, Dry Weight Start Date: 04/21/23 Status: Ordered Medication Dispense Status: Completed Quantity: 30.0 Unit: tablet Total Allowed Fills: 1 Fills Dispensed: 0 Social History Social History Type Response Sex Sex Representation Male (finding) Patient Care team information Care Team Personnel Name: Radu Magaña MD Position: Reference Physician Member Role: PCP Address: [address] [place] [id number] Telecom: Care Team Related Persons Name: MARICARMEN LAUGHLIN Insurance Providers Guarantor name: IZABELLA Health Plan Information #: 1 Payer: [place] [employer] Payer Identifier: IZABELLA Member Number: [id number] Group Number: [id number] Subscriber Identifier: IZABELLA Relationship to Subscriber: self Coverage Type: Managed Care (Private) Coverage Verification Date: IZABELLA Telecom: IZABELLA Address:
--- OUTSIDE RECORDS SUMMARY | 2025-07-21 09:13 | XMS_ITS | Clinical Summary ---
Author Organization [facility] Address [address] [place] [address] Phone Care Team Providers Care Formula Room Worker Name Role Phone Radu Campbell MD Primary [...] Type Department Care Team Description 06/28/2025 Telephone [facility] [address] [place] [address] Elyssa Mcknight MD 06/26/2025 Transcribe Orders [facility] [address], [address] [place] [address] Radu Campbell MD Atrial fibrillation, unspecified type (Primary Dx) 06/26/2025 Transcribe Orders [facility] [address], [address] [place] [address] Radu Campbell MD Atrial fibrillation, [...] 67 Admit Type: Outpatient Gender: Male Room: [facility] 05 Referring MD: Radu Zamarripa MD Exam [...] monitored continuously. The Olympus adult variable colonoscope [id number] #4 was introduced through the anus and advanced to the cecum, identified by the appendiceal orifice, ileocecal valveand palpation. The colonoscopy was performed without difficulty. The patient tolerated the procedure well.The quality of the bowel preparation was evaluated usingthe BBPS ([place] Bowel Preparation Scale) with scores of: Right [...] 7:21 AM Procedure Code(s): --- Professional --- 04630, Colonoscopy, flexible; with removal of tumor(s), polyp(s), or other lesion(s) by snare technique --- Technical --- 62333, Colonoscopy, flexible; with removal of tumor(s), polyp(s), [...] perforation orabscess without bleeding CPT copyright 2018 [employer]. All rights reserved. The codes documented in this report are preliminary and upon select banker reviewmay be revised to meet current compliance requirements. Procedure Date: 09/12/2019 7:21:14 AM [address] [place] [address] Radu Zamarripa MD GI PROCEDURE ORDER DUARTE Final Result * (ABNORMAL) Basic metabolic panel (05/30/2018 12:40 PM EST) SODIUM 141 133 - 146 mmol/L [facility] CHLORIDE 103 96 - 108 mmol/L [facility] POTASSIUM 4.3 3.3 - 5.1 mmol/L [facility] CO2 24 21 - 35 mmol/L [facility] BUN 17 6 - 19 mg/dL [facility] CREATININE 1.00 0.5 - 1.5 mg/dL [facility] GLUCOSE 118(H) 70 - 99 mg/dL [facility] CALCIUM 9.2 8.4 - 10.3 mg/dL [facility] EGFR 79 >59 mL/min/1.7 3m2 [facility] Comment:If patient is black, multiply result by 1.159. Estimated glomerular filtration rate calculated using the CKD-EPI equation. ANION GAP 18 10 - 20 mmol/L [facility] Blood 05/30/2018 12:4 0 PM EST 05/30/2018 12:54 PM EST Daniela Fuller MD LAB BLOOD BKR ORDERA BLES Final Result [facility] [address] [place] [address] from Last 3 Months or Most Recently Relevant to Health Maintenance Insurance [employer] [facility] [place] [address] [place] [address] [place] Advance Directives For more information, please contact: [phone] (9AM - 5PM Dee/[facility], Thursday-Thursday) Documents on File Type Date Recorded Patient Outboard System Operator Expl anation Healthcare Proxy 09/12/2019 healthcare proxy Care Teams Formula Room Worker Relationship Specialty Start Date End Date Radu Campbell MD [email or web address] PCP - General 05/04/17 Additional Source Comments The information contained in this document represents components of the legal health record. It is not the complete legal health record.[facility]
--- OUTSIDE RECORDS SUMMARY | 2025-07-21 09:13 | XMS_ITS | Encounter Summary ---
Author Organization [facility] Address [address] [place] [address] Care Team Providers Care Director Medical Surgical Name Role Phone Yaw Campbell MD Primary Care Provi raudel Reason for Visit * Reason Onset Date Comments Procedure 07/19/2025 PFA Afib Ablatio n 1.12.26 Encounter Details Date Type Department Care Team (Late st Contact Info) Description 07/19/2025 Telephone [facility] Cardiology [facility] [address] [facility] [address] [place] [address] Jolene Li MD [address] [place] [address] Dr F[address] [place] [phone] Social History Tobacco Use Types Packs/Day Years [...] as of this encounter Plan of Treatment Upcoming Encounters Date Type Department Care Team (Late st Contact Info) Description 08/30/2025 1:40 PM EST Office Visit [facility] Cardiology [facility] [address] [facility] [address] [place] [address] Veronica Draper NP [address] [address] Scheduled Orders Name Type Priority Associated Diagnoses Orde r Schedule Complete blood count Lab Routine Atrial fibrillation ([facility] V24, [facility] V28) 1 Occurrences starting 07/21/2025 until 07/21/2026 Prothrombin time with INR Lab Routine Atrial fibrillation ([facility] V24, [facility] V28) 1 Occurrences starting 07/21/2025 until 07/21/2026 Basic metabolic panel Lab Routine Atrial fibrillation ([facility] V24, [facility] V28) 1 Occurrences starting 07/21/2025 until 07/21/2026 documented as of this encounter Visit Diagnoses Diagnosis Atrial fibrillation ([facility] V24, [facility] V28)- Primary Atrial fibrillation documented in this encounter Care Teams Director Medical Surgical Relationship Specialty Start Date End Date Yaw Campbell MD [address] [place] [phone] PCP - General Family Medicine 06/27/25 documented as of this encounter
--- OUTSIDE RECORDS SUMMARY | 2025-07-21 09:13 | XMS_ITS | Clinical Summary ---
Author Organization [facility] [employer] [facility] Address [address] [place] [address] Phone Care Team Providers Care Business Continuity Strategy Director Name Role Phone Yaw Campbell MD Primary [...] Encounters Date Type Department Care Team Description 07/19/2025 Telephone [facility] Cardiology [facility] [address] [place] [phone] Jolene Vitale MD 07/18/2025 9:30 AM EST Ancillary Procedure [facility] [address] [place] [address] Atrial fibrillation, unspecified type (CMS/HCC V24, CMS/HCC V28); Dilated cardiomyopathy (CMS/HCC V24, CMS/HCC V28); Systolic congestive heart failure, unspecified HF chronicity (CMS/HCC V24, CMS/HCC V28) 06/28/2025 11:10 AM EST Office Visit [facility] Cardiology [facility] [address] [place] [address] Jolene Vitale MD Atrial fibrillation, unspecified type (CMS/HCC V24, CMS/HCC V28) (Primary Dx); Dilated cardiomyopathy (CMS/HCC V24, CMS/HCC V28); Systolic congestive heart failure, unspecified HF chronicity (CMS/[facility] V24, CMS/HCC V28) 06/27/2025 Telephone [facility] [address] [facility] [address] [place] [address] Yaw Campbell MD from Last [...] 07/18/2025 9:32 AM EST Plan of Treatment Upcoming Encounters Date Type Department Care Team (Late st Contact Info) Description 08/30/2025 1:40 PM EST Office Visit [facility] [address] [facility] [address] [place] [address] Veronica Draper NP [address] [place] [address] [place] [address] Health Maintenance Due Date Last Done Comments Colorectal Cancer Screening: Colonoscopy 1950 RSV Immunization Adult Patients (1 - Risk 50-74 years 1-dose series) 2002 Zoster Vaccines (1 of 2) 2002 COVID-19 Vaccine ( season) 2025 05/22/2022, 06/28/2021, 10/19/2020, Additional history exists Cholesterol Screening (Lipid Panel) 06/27/2025 Falls Risk Assessment 06/27/2025 Hepatitis C Screening 06/27/2025 Social Influencers of Health Screening 06/27/2025 Hypertension/CHF/CAD Annual BMP Blood Test 06/28/2025 Depression Screening 07/20/2025 DTaP,Tdap,and Td Vaccines (3 - Td or [...] unspecified HF chronicity (CMS/HCC V24, CMS/HCC V28) ECG 12-LEAD Routine 06/28/2025 11:27 AM EST Atrial fibrillation, unspecified type (CMS/HCC V24, CMS/HCC V28) from Last 3 Months Results * NM LEXISCAN STRESS TEST W/ [...] SDS Score: 0 Percentage Abnormal: 0.00% Jolene Vitale MD CV STRESS PROCEDURES Final Result * ECG 12 lead (06/28/2025 11:27 AM EST) Ventricular Rate ECG 91 BPM GEMUSE Atrial Rate 202 BPM GEMUSE QRS Duration 98 ms GEMUSE Q-T Interval 392 ms GEMUSE QTc 482 ms GEMUSE R [place] 10 degrees GEMUSE T [place] -136 degrees GEMUSE ECG Interpretation Atrial fibrillation with premature ventricular or aberrantly conducted complexes Low voltage QRS Cannot rule out Anterior infarct , age undetermined No previous ECGs available Confirmed by RUBEN VITALE ([id number]) on 07/16/2025 11:22:57 PM GEMUSE 06/28/2025 11:2 7 AM EST 07/16/2025 11:22 PM EST Jolene Vitale MD ECG ORDERABLES Final Resu lt GEMUSE from Last 3 Months Insurance MEDICARE [facility] [employer] [place] [id number] Care Teams Business Continuity Strategy Director Relationship Specialty Start Date End Date Yaw Campbell MD [address] [place] [phone] PCP - General Family Medicine 06/27/25
--- OUTSIDE RECORDS SUMMARY | 2025-07-21 09:13 | XMS_ITS | Encounter Summary ---
Author Organization [facility] Address [address] [place] [address] Phone Care Team Providers Care Recovery Assistant Name Role Phone Radu Campbell MD Primary Care Prov ider Encounter Details Date Type Department Care Team ([facility] st Contact Info) Description 06/28/2025 Telephone [facility] Gastro[facility]ology Clinic [address] [place] [address] Eitan Vasquez MD [address] [address] [email or web address] Social History Tobacco Use Types Packs/Day Years [...] on filedocumented in this encounter Care Teams Recovery Assistant Relationship Specialty Start Date End Date Radu Campbell MD [email or web address] PCP - General 05/04/17 documented as of this encounter Additional Source Comments The information contained in this document represents components of the legal health record. It is not the complete legal health record.[facility]
--- OUTSIDE RECORDS SUMMARY | 2025-07-21 09:13 | XMS_ITS | Encounter Summary ---
Author Organization [facility] Address [address] [place] [id number] Phone Care Team Providers Care Commodity Loan Clerk Name Role Phone Radu Campbell MD Primary Care Prov ider Encounter Details Date Type Department Care Team (Late st Contact Info) Description 09/12/2019 Procedure Pass [facility] Endoscopy Admitting Dept Virtual Department [address] [place] [address] Social History Tobacco Use Types Packs/Day Years [...] on filedocumented in this encounter Care Teams Commodity Loan Clerk Relationship Specialty Start Date End Date Radu Campbell MD PCP - General 05/04/17 documented as of this encounter Additional Source Comments The information contained in this document represents components of the legal health record. It is not the complete legal health record[facility]
== END 2025-07-19 09:06 | disposition home or self-care (01) ==
LOC: HO.HOSX 09:05
PROVIDERS: Visit Provider Orthopaedic Surgery
DX: M79.642 Pain in left hand (principal)
CPT/HCPCS: 73130